=== PATIENT | male | born 1995 | race Caucasian/White ===

== ENCOUNTER 2019-10-11 22:34 | Emergency (ER) | payer SELFPAY ==
[~2019-10-11] VITALS: Ht 180.3 cm; Wt 77.3 kg
[2019-10-11 22:39] VITALS: TEMP 97.8
[2019-10-11] MEDS ORDERED: XANAX 0.5MG0.5 MG PO (22:46)
[2019-10-11] MEDS ORDERED: LEXAPRO20 MG (22:46)
[2019-10-11 23:01] LABS: BASO % 0.5 % (0.0-2.0); EOS # 0.4 (0.0-0.7); EOS % 4.4 % (0-4.0); GRAN # 3.9 (1.4-6.5); GRAN % 49.6 % (42.2-75.2); HEMATOCRIT 45.3 % (42.0-52.0); HEMOGLOBIN 16.1 g/dl (13.5-18.0); LYMPH # 2.8 (1.2-3.4); LYMPH % 35.6 % (20.0-51.0); MEAN CELL VOLUME 88 fl (80.0-100.0); MEAN CORPUSCULAR HEMOGLOBIN 31 pg (27.0-31.0); MEAN CORPUSCULAR HGB CONC 36 g/dl (33.0-37.0); MEAN PLATELET VOLUME 12.6 fl (7.4-10.4); MONO # 0.8 (0.1-0.6); MONO % 9.8 % (1.7-9.3); PLATELET COUNT 159 K/mm3 (130-400); RED BLOOD COUNT 5.15 M/mm3 (4.20-5.60); REDCELL DISTRIBUTION WIDTH-CV 11.6 % (11.5-14.5)
[2019-10-11 23:10] LABS: ALANINE AMINOTRANSFERASE 22 U/L (21-72); ALBUMIN 4.7 gm/dL (3.5-5.0); ALCOHOL(ethanol),MEDICAL 127 mg/dL; ALKALINE PHOSPHATASE 52 U/L (50-136); ANION GAP 14 mmol/L (7-16); AST,SGOT 25 U/L (15-37); BILIRUBIN,TOTAL 0.6 mg/dL (0.0-1.0); BLOOD UREA NITROGEN 9 mg/dL (9-20); CALCIUM 9.2 mg/dL (8.4-10.2); CARBON DIOXIDE 20 mmol/L (22-30); CHLORIDE 105 mmol/L (98-107); CREATININE, serum 0.72 (0.66-1.25); GLUCOSE 81 mg/dL (74-106); LIPASE 91 U/L (23-300); POTASSIUM 3.3 mmol/L (3.4-5.0); SODIUM 139 mmol/L (137-145)
[2019-10-11 23:21] LABS: ACETAMINOPHEN < 10 ug/mL (10-30); SALICYLATE < 1.0 mg/dL
[2019-10-12 00:20] VITALS: BP 102/65; PULSE 59
== END 2019-10-12 00:20 | disposition home or self-care (01) ==
LOC: COL.ER 22:34
PROVIDERS: Emergency Medicine
DX: F10.129 Alcohol abuse with intoxication, unspecified (principal); F41.9 Anxiety disorder, unspecified; Y90.6 Blood alcohol level of 120-199 mg/100 ml
CPT/HCPCS: J1885; J2405; J7030

== ENCOUNTER 2020-01-05 19:12 | Emergency (ER) | payer SELFPAY ==
[~2020-01-05] VITALS: Ht 177.8 cm; Wt 75.9 kg
[~2020-01-05 19:12] MED LIST: LEXAPRO20 MG; XANAX 0.5MG0.5 MG PO
[2020-01-05 19:22] VITALS: TEMP 98.1
[2020-01-05 21:31] VITALS: BP 127/76; PULSE 79
== END 2020-01-05 21:35 | disposition home or self-care (01) ==
LOC: COL.ER 19:12
DX: J06.9 Acute upper respiratory infection, unspecified (principal); F17.210 Nicotine dependence, cigarettes, uncomplicated; F41.9 Anxiety disorder, unspecified; Z79.899 Other long term (current) drug therapy

== ENCOUNTER 2020-12-16 10:44 | Emergency (ER) | payer SELFPAY ==
[~2020-12-16] VITALS: Ht 180.3 cm; Wt 72.7 kg
[2020-12-16 10:50] VITALS: TEMP 97.7
[2020-12-16 11:31] LABS: STREP SCREEN NEGATIVE
[2020-12-16 11:47] VITALS: BP 122/79; PULSE 80
[2021-06-30] MEDS ORDERED: ATARAX 25MG25 MG/TAB PO (22:03)
== END 2020-12-16 11:50 | disposition home or self-care (01) ==
LOC: COL.ER 10:44
PROVIDERS: Nurse Practitioner Primary Care
DX: J06.9 Acute upper respiratory infection, unspecified (principal); F17.210 Nicotine dependence, cigarettes, uncomplicated; Z20.822 Contact with and (suspected) exposure to COVID-19

== ENCOUNTER 2020-12-18 19:28 | Emergency (ER) | payer SELFPAY ==
[~2020-12-18] VITALS: Ht 180.3 cm; Wt 72.7 kg
[2020-12-18 19:37] VITALS: TEMP 98.1
[2020-12-18 20:02] LABS: BASO % 0.4 % (0.0-2.0); EOS # 0.5 (0.0-0.7); EOS % 6.7 % (0-4.0); GRAN # 3.5 (1.4-6.5); HEMOGLOBIN 16.6 g/dl (13.5-18.0); LYMPH # 2.1 (1.2-3.4); LYMPH % 29.1 % (20.0-51.0); MEAN CELL VOLUME 90 fl (80.0-100.0); MEAN CORPUSCULAR HEMOGLOBIN 32 pg (27.0-31.0); MEAN CORPUSCULAR HGB CONC 35 g/dl (33.0-37.0); MEAN PLATELET VOLUME 12.3 fl (7.4-10.4); MONO % 14.5 % (1.7-9.3); PLATELET COUNT 194 K/mm3 (130-400); RED BLOOD COUNT 5.24 M/mm3 (4.20-5.60); REDCELL DISTRIBUTION WIDTH-CV 12.1 % (11.5-14.5)
[2020-12-18 20:08] LABS: ALBUMIN 4.5 gm/dL (3.5-5.0); BILIRUBIN,TOTAL 0.4 mg/dL (0.0-1.0); CALCIUM 9.5 mg/dL (8.4-10.2); CREATININE, serum 0.82 (0.66-1.25); POTASSIUM 3.7 mmol/L (3.4-5.0); TOTAL PROTEIN 8.4 gm/dL (6.4-8.2)
[2020-12-18 21:42] VITALS: BP 129/81; PULSE 71
[2021-06-30] MEDS ORDERED: ATARAX 25MG25 MG/TAB PO (22:03)
== END 2020-12-18 21:45 | disposition home or self-care (01) ==
LOC: COL.ER 19:28
PROVIDERS: Emergency Medicine Emergency Medical Services
DX: R10.31 Right lower quadrant pain (principal); J06.9 Acute upper respiratory infection, unspecified; F41.9 Anxiety disorder, unspecified
CPT/HCPCS: J1885; J2270; J2405; J7030; Q9967

== ENCOUNTER 2021-01-23 21:48 | Emergency (ER) | payer SELFPAY ==
[~2021-01-23] VITALS: Ht 180.3 cm; Wt 86.4 kg
[2021-01-23 22:13] LABS: BASO % 0.4 % (0.0-2.0); EOS # 0.4 (0.0-0.7); EOS % 4.5 % (0-4.0); GRAN # 3.1 (1.4-6.5); GRAN % 39.7 % (42.2-75.2); HEMATOCRIT 49.1 % (42.0-52.0); HEMOGLOBIN 17.4 g/dl (13.5-18.0); LYMPH # 3.4 (1.2-3.4); LYMPH % 44.6 % (20.0-51.0); MEAN CELL VOLUME 89 fl (80.0-100.0); MEAN CORPUSCULAR HEMOGLOBIN 32 pg (27.0-31.0); MEAN CORPUSCULAR HGB CONC 35 g/dl (33.0-37.0); MEAN PLATELET VOLUME 12.3 fl (7.4-10.4); MONO # 0.8 (0.1-0.6); MONO % 10.5 % (1.7-9.3); PLATELET COUNT 194 K/mm3 (130-400); RED BLOOD COUNT 5.52 M/mm3 (4.20-5.60); REDCELL DISTRIBUTION WIDTH-CV 12.1 % (11.5-14.5)
[2021-01-23 22:21] LABS: ALANINE AMINOTRANSFERASE 82 U/L (4-49); ALBUMIN 4.5 gm/dL (3.5-5.0); ALKALINE PHOSPHATASE 55 U/L (50-136); ANION GAP 10 mmol/L (7-16); AST,SGOT 53 U/L (15-37); BILIRUBIN,TOTAL 0.7 mg/dL (0.0-1.0); BLOOD UREA NITROGEN 9 mg/dL (9-20); CALCIUM 9.3 mg/dL (8.4-10.2); CARBON DIOXIDE 24 mmol/L (22-30); CHLORIDE 102 mmol/L (98-107); CREATININE, serum 0.78 (0.66-1.25); GLUCOSE 102 mg/dL (74-106); POTASSIUM 3.8 mmol/L (3.4-5.0); SODIUM 137 mmol/L (137-145); TOTAL PROTEIN 8.2 gm/dL (6.4-8.2)
[2021-01-23 22:25] LABS: ALCOHOL(ethanol),MEDICAL < 10 mg/dL
[2021-01-23 22:37] LABS: TROPONIN-I < 0.012 ng/mL (0.000-0.035)
[2021-01-23 23:00] LABS: TRICYCLIC ANTIDEPRESS URINE NEGATIVE
[2021-01-24 03:03] VITALS: BP 119/85; PULSE 79; TEMP 98.2
--- NOTE | 2021-01-24 16:50 | NUR ---
Implementation Architect received a consult for patient who needs primary care and cardiology follow up. SW contacted patient who is not insured and is agreeable to be set up with [facility] in [place]. 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 Patient advised he travels for work and would be gone the next couple weeks. SW contacted the [facility] and scheduled appointment for 03/10/21 at 1400. SW also faxed clinical records. VALERIA then contacted Dr. Rendon's cardiology clinic and was advised they can accept patients with no insurance as long as patient can pay at least $150 up front. SW followed up with patient and provided the above information. SW also advised patient to complete new patient registration online at [facility]'s website and bring I.D., proof of address, and proof of income to his appointment. Patient verbalized understanding.
[2021-06-30] MEDS ORDERED: ATARAX 25MG25 MG/TAB PO (22:03)
== END 2021-01-24 03:03 | disposition home or self-care (01) ==
LOC: COL.ER 21:48
PROVIDERS: Emergency Medicine
DX: R07.89 Other chest pain (principal)
CPT/HCPCS: J1885; J2060; J7030

== ENCOUNTER 2021-04-01 19:53 | Emergency (ER) | payer SELFPAY ==
[~2021-04-01] VITALS: Ht 177.8 cm; Wt 86.4 kg
[2021-04-01 20:25] LABS: BASO % 0.5 % (0.0-2.0); EOS # 0.4 (0.0-0.7); EOS % 4.7 % (0-4.0); GRAN % 57.2 % (42.2-75.2); HEMOGLOBIN 17.9 g/dl (13.5-18.0); LYMPH # 2.6 (1.2-3.4); LYMPH % 29.2 % (20.0-51.0); MEAN CELL VOLUME 92 fl (80.0-100.0); MEAN CORPUSCULAR HEMOGLOBIN 32 pg (27.0-31.0); MEAN CORPUSCULAR HGB CONC 34 g/dl (33.0-37.0); MEAN PLATELET VOLUME 12.7 fl (7.4-10.4); MONO # 0.7 (0.1-0.6); MONO % 8.2 % (1.7-9.3); PLATELET COUNT 144 K/mm3 (130-400); RED BLOOD COUNT 5.66 M/mm3 (4.20-5.60)
[2021-04-01 20:28] LABS: HEMATOCRIT 52.1 % (42.0-52.0)
[2021-04-01 20:33] LABS: INR 1.1 (0.8-3.0); PROTHROMBIN TIME 11.9 SECONDS (9.7-12.8)
[2021-04-01 20:35] LABS: PARTIAL THROMBOPLASTIN TIME 23.1 SECONDS (26.0-37.0)
[2021-04-01 20:36] LABS: ALBUMIN 4.5 gm/dL (3.5-5.0); BILIRUBIN,TOTAL 0.9 mg/dL (0.0-1.0); CALCIUM 9.3 mg/dL (8.4-10.2); CREATININE, serum 0.76 (0.66-1.25); POTASSIUM 3.9 mmol/L (3.4-5.0); TOTAL PROTEIN 8.5 gm/dL (6.4-8.2)
[2021-04-01] MEDS ORDERED: ZOFRAN ODT4 MG PO (21:48)
[2021-04-01] MEDS ORDERED: FLEXERIL 1010 MG/TAB PO (21:48)
[2021-04-01 22:15] VITALS: BP 151/97; PULSE 85; TEMP 98.1
[2021-06-30] MEDS ORDERED: ATARAX 25MG25 MG/TAB PO (22:03)
== END 2021-04-01 22:15 | disposition home or self-care (01) ==
LOC: COL.ER 19:53
PROVIDERS: Emergency Medicine
DX: M25.512 Pain in left shoulder (principal); M54.2 Cervicalgia; W13.2XXA Fall from, out of or through roof, initial encounter
CPT/HCPCS: J1885; J2270; J3360; J7030

== ENCOUNTER 2021-08-10 11:41 | Emergency (ER) | payer SELFPAY ==
[~2021-08-10] VITALS: Ht 180.3 cm; Wt 81.8 kg
[~2021-08-10 11:41] MED LIST changes: +ATARAX 25MG25 MG/TAB PO; +FLEXERIL 1010 MG/TAB PO; +ZOFRAN ODT4 MG PO
[2021-08-10 12:04] VITALS: BP 137/92; TEMP 98
[2021-08-10 13:42] VITALS: PULSE 84
== END 2021-08-10 13:40 | disposition home or self-care (01) ==
LOC: COL.ER 11:41
DX: S60.031A Contusion of right middle finger without damage to nail, initial encounter (principal); W23.1XXA Caught, crushed, jammed, or pinched between stationary objects, initial encounter; Y92.009 Unspecified place in unspecified non-institutional (private) residence as the place of occurrence of the external cause

== ENCOUNTER 2021-09-06 23:49 | Emergency (ER) | payer SELFPAY ==
[~2021-09-06] VITALS: Ht 180.3 cm; Wt 90.0 kg
[2021-09-07 00:05] VITALS: TEMP 99.3
[2021-09-07 00:50] VITALS: BP 130/61; PULSE 80
== END 2021-09-07 00:56 | disposition home or self-care (01) ==
LOC: COL.ER 23:49
DX: J06.9 Acute upper respiratory infection, unspecified (principal); F41.9 Anxiety disorder, unspecified; Z79.899 Other long term (current) drug therapy; Z20.822 Contact with and (suspected) exposure to COVID-19

== ENCOUNTER 2021-10-08 17:59 | Emergency (ER) | payer MEDICAID ==
[~2021-10-08] VITALS: Ht 177.8 cm; Wt 88.2 kg
[2021-10-08 18:15] VITALS: TEMP 97.8
[2021-10-08 18:48] LABS: HEMATOCRIT 43.4 % (42.0-52.0); MEAN CELL VOLUME 88 fl (80.0-100.0); MEAN CORPUSCULAR HEMOGLOBIN 31 pg (27-31); MEAN CORPUSCULAR HGB CONC 35 g/dl (33.0-37.0); MEAN PLATELET VOLUME 11.8 fl (7.4-10.4); PLATELET COUNT 192 K/mm3 (130-400); RED BLOOD COUNT 4.91 M/mm3 (4.20-5.60); REDCELL DISTRIBUTION WIDTH-CV 12.2 % (11.5-14.5)
[2021-10-08 19:09] LABS: ALANINE AMINOTRANSFERASE 313 U/L (0-55); ALKALINE PHOSPHATASE 57 U/L (40-150); ANION GAP 10 mmol/L (7-16); AST,SGOT 93 U/L (5-34); BILIRUBIN,TOTAL 0.7 mg/dL (0.2-1.2); BLOOD UREA NITROGEN 13 mg/dL (9-21); CALCIUM 8.8 mg/dL (8.4-10.2); CARBON DIOXIDE 23 mmol/L (22-29); CHLORIDE 108 mmol/L (98-107); CREATININE, serum 0.98 mg/dL (0.72-1.25); GLUCOSE 115 mg/dL (70-99); POTASSIUM 3.8 mmol/L (3.5-4.5); SODIUM 141 mmol/L (136-145); TOTAL PROTEIN 7.3 gm/dL (6.2-8.1)
[2021-10-08 19:16] LABS: TROPONIN-I < 0.010 ng/mL (0.00-0.033)
[2021-10-08 19:25] LABS: BAND 1 % (0-10); EOSINOPHIL 2 % (0-4); LYMPHOCYTE 36 % (20.0-51.0); NEUTROPHILS 49 % (42.0-75.2); PLATELET ESTIMATE NORMAL (NORMAL)
[2021-10-08 20:25] VITALS: BP 105/76; PULSE 71
[2021-10-10 08:05] LABS: PATHOLOGY DIFF REVIEW OK
== END 2021-10-08 20:25 | disposition home or self-care (01) ==
LOC: COL.ER 17:59
PROVIDERS: Nurse Practitioner Primary Care
DX: U07.1 COVID-19 (principal); F17.200 Nicotine dependence, unspecified, uncomplicated; Z73.0 Burn-out

== ENCOUNTER 2022-01-03 12:06 | Emergency (ER) | payer MEDICAID ==
[~2022-01-03] VITALS: Ht 177.8 cm; Wt 89.5 kg
[2022-01-03 12:18] VITALS: TEMP 98.1
[2022-01-03] MEDS ORDERED: CEPHALEXIN500 M1 PO (15:03)
[2022-01-03 15:23] VITALS: BP 108/75; PULSE 80
== END 2022-01-03 15:23 | disposition home or self-care (01) ==
LOC: COL.ER 12:06
DX: S62.522B Displaced fracture of distal phalanx of left thumb, initial encounter for open fracture (principal); F17.210 Nicotine dependence, cigarettes, uncomplicated; Z23 Encounter for immunization; W22.8XXA Striking against or struck by other objects, initial encounter

== ENCOUNTER 2022-06-01 11:23 | Emergency (ER) | payer MEDICAID ==
[~2022-06-01] VITALS: Ht 180.3 cm; Wt 86.4 kg
[~2022-06-01 11:23] MED LIST changes: +CEPHALEXIN500 M1 PO
[2022-06-01 11:31] VITALS: TEMP 98.8
[2022-06-01 13:26] LABS: BASO % 0.1 % (0.0-2.0); EOS # 0.2 K/mm3 (0.0-0.7); EOS % 2.5 % (0.0-4.0); GRAN # 6.7 K/mm3 (1.4-6.5); GRAN % 72.1 % (42.2-75.2); HEMATOCRIT 48.2 % (42.0-52.0); HEMOGLOBIN 16.8 g/dl (13.5-18.0); LYMPH # 1.6 K/mm3 (1.2-3.4); LYMPH % 16.8 % (20.0-51.0); MEAN CELL VOLUME 89 fl (80.0-100.0); MEAN CORPUSCULAR HEMOGLOBIN 31 pg (27-31); MEAN CORPUSCULAR HGB CONC 35 g/dl (33.0-37.0); MONO # 0.8 K/mm3 (0.1-0.6); MONO % 8.3 % (1.7-9.3); PLATELET COUNT 194 K/mm3 (130-400); RED BLOOD COUNT 5.42 M/mm3 (4.20-5.60); REDCELL DISTRIBUTION WIDTH-CV 12.2 % (11.5-14.5)
[2022-06-01 13:45] LABS: ALBUMIN 4.2 gm/dL (3.5-5.0); CALCIUM 9.6 mg/dL (8.4-10.2); CREATININE, serum 0.86 mg/dL (0.72-1.25)
[2022-06-01 13:50] LABS: COLLECTION METHOD CLEAN CATCH
[2022-06-01 14:25] LABS: PH 5.5 (5.0-8.5); URINE APPEARANCE Clear (CLEAR/HAZY); URINE COLOR Amber (YELLOW); URINE GLUCOSE Negative (NEGATIVE); URINE KETONE Negative (NEGATIVE); URINE PROTEIN(semi-quant) Negative (NEGATIVE)
[2022-06-01 14:26] LABS: URINE BLOOD Negative (NEGATIVE); URINE NITRATE Negative (NEGATIVE); URINE UROBILINOGEN 0.2 E.U/dL (0.2-1.0)
[2022-06-01 14:52] LABS: MUCOUS Present (NOT PRESENT); SQUAMOUS EPITHELIAL None Seen /hpf (0-10); URINE BACTERIA None Seen /hpf (NONE SEEN); URINE RBC 0-2 /hpf (0-2)
[2022-06-01] MEDS ORDERED: ROBAXIN 50500 MG/TAB PO (15:32)
[2022-06-01 15:45] VITALS: BP 117/79; PULSE 72
== END 2022-06-01 15:45 | disposition home or self-care (01) ==
LOC: COL.ER 11:23
PROVIDERS: Emergency Medicine
DX: R10.9 Unspecified abdominal pain (principal); F17.200 Nicotine dependence, unspecified, uncomplicated; Z28.310 Unvaccinated for COVID-19
CPT/HCPCS: J1885; J3010; J7030; Q9967

== ENCOUNTER 2022-07-20 21:50 | Emergency (ER) | payer MEDICAID ==
[~2022-07-20] VITALS: Ht 180.3 cm; Wt 84.1 kg
[~2022-07-20 21:50] MED LIST changes: +ROBAXIN 50500 MG/TAB PO
[2022-07-20 21:52] VITALS: TEMP 97.5
[2022-07-20] MEDS ORDERED: REMERON 15M15 MG/TA1 PO (21:55)
[2022-07-20] MEDS ORDERED: AMOXICILLIN 8751 TAB PO (22:19)
[2022-07-20] MEDS ORDERED: NORCO 325 MG-51 TAB PO (22:19)
[2022-07-20 22:31] VITALS: BP 129/91; PULSE 70
== END 2022-07-20 22:32 | disposition home or self-care (01) ==
LOC: COL.ER 21:50
DX: K08.89 Other specified disorders of teeth and supporting structures (principal); Z28.311 Partially vaccinated for COVID-19